=== PATIENT | male | born 1985 | race Caucasian/White ===

== ENCOUNTER 2022-12-27 20:44 | Emergency (ER) | payer OTHER ==
[2022-12-27] MEDS ORDERED: Sodium Chloride 0.9% 10 ML Syringe FLUSH PRN (21:11)
[2022-12-27] MEDS ORDERED: Bacitracin Oint 1 GM U/D Packet TOP ONE (21:12)
[2022-12-27] MEDS ORDERED: Lidocaine 1% 5 ML VIAL INJECT ONE (21:12)
[2022-12-27] MEDS ORDERED: Morphine 2 MG/ML SYRINGE IVPUSH ONE ×2 (21:12→22:16)
[2022-12-27 21:45] VITALS: BP 130/78; PULSE 74
[2022-12-27] MEDS ORDERED: Diphtheria,Pertussis(Acell),Tetanus Vaccine 0.5 ML Syringe IM ONE (22:11)
== END 2022-12-27 22:53 | disposition home or self-care (01) ==
LOC: DL.ED 20:44
DX: S67.191A Crushing injury of left index finger, initial encounter (principal); F17.210 Nicotine dependence, cigarettes, uncomplicated; Z23 Encounter for immunization; W23.0XXA Caught, crushed, jammed, or pinched between moving objects, initial encounter; Y92.89 Other specified places as the place of occurrence of the external cause; Y99.0 Civilian activity done for income or pay
CPT/HCPCS: 12001; 73140-LT; 90471; 90715; 96374; 96376; 99282; 99283-25; A9270-GY; J2270; J3490